=== PATIENT | male | born 1995 | race Caucasian/White ===

== ENCOUNTER 2025-04-01 10:18 | Outpatient (AMB) | payer MEDICARE, SELFPAY ==
--- NOTE | 2025-04-01 10:20 | A.OFFPC_ITS ---
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 Methadone maintenance therapy: - The patient is currently on methadone maintenance therapy and resides in a supportive housing environment. - He requires assistance with methadone management to facilitate take-home dosing. History of intravenous opioid use: - The patient has a history of intraveno us opioid use, primarily heroin, with the last use in August 2021. - He has experienced multiple overdoses but has been abstinent from heroin since the last incident. Schizoaffective disorder: - The patient is diagnosed with schizoaf fective disorder and is managed with haloperidol. Bipolar disorder: - The patient has bipolar disorder, jillian shay with divalproex and supported by regular psychiatric care. Chronic constipation: - The patient experiences chronic consti pation, likely secondary to methadone use, and reports bowel movements every four days. Tobacco use disorder: - The patient smokes approximately 10 ci garettes daily and has a history of smoking for about 10 years. Review of Systems - Gastrointestinal: Reports chronic cons tipation, bowel movements every four days. Denies abdominal pain. - Neurological: Denies headaches, dizzin ess, or balance issues. - Respiratory: Denies dyspnea, cough, or wheezing. 10-point ROS reviewed and negative excep t as noted in HPI Past Medical History - Methadone maintenance therapy for opio id use disorder - History of intravenous opioid use, las t use in August 2021 - Schizoaffective disorder, managed with haloperidol - Bipolar disorder, treated with divalpr oex - Chronic constipation, likely secondary to methadone use - Tobacco use disorder, smoking approxim ately 10 cigarettes daily Health Maintenance - Blood work ordered: Complete blood cou nt, comprehensive metabolic panel, lipid panel, thyroid function tests, vitamin B12, folate, vitamin D, hepatitis B and C, HIV screening - Referral to community nurse for methad one management support Physical Exam General: Well-appearing, in no acute distress. Vital signs: Within normal limits. HEENT: Normocephalic, atraumatic. PERRLA, EOMI. Conjunctiva clear, sclera anicteric. Oropharynx clear, mucous membranes moist. TMs intact bilaterally. Neck: Supple, no lymphadenopathy, no thyromegaly, no JVD or carotid bruits. Cardiovascular: RRR, normal S1/S2, no murmurs, rubs, or gallops. Peripheral pulses 2+ and symmetric. No edema. Respiratory: Lungs clear to auscultation bilaterally, no wheezes, rales, or rhonchi. Normal effort. Abdomen: Soft, non-tender, non-distended. Normoactive bowel sounds. No hepatosplenomegaly, no masses. MSK: Full range of motion, no joint swelling or deformity. Normal gait. Skin: Warm, dry, intact. No rashes, lesions, or pallor. Neuro: Alert and oriented x3. Cranial nerves II-XII intact. Strength 5/5 throughout. Sensation intact. Reflexes 2+ symmetric. Normal coordination and gait. Psych: Appropriate mood and affect. Normal judgment and insight. Patient reports history of schizoaffective disorder and bipolar disorder, managed with Divalproex, Haloperidol, and Hydroxyzine. Reports seeing a psychiatrist and therapist regularly. Plan 1. Methadone Maintenance Therapy - Continue methadone maintenance therapy . Arrange for community nurse to assist with take-home dosing management. 2. History Of Intravenous Opioid Use - Maintain abstinence from opioids. Cont inue monitoring and support through methadone program. 3. Schizoaffective Disorder - Continue current psychiatric managemen t with haloperidol. Regular follow-up with psychiatrist. 4. Bipolar Disorder - Continue treatment with divalproex. Ma intain regular psychiatric follow-up. 5. Chronic Constipation - Prescribe stool softeners and laxative s as needed. Monitor bowel movement frequency and adjust treatment accordingly. 6. Tobacco Use Disorder - Discuss smoking cessation strategies. Consider nicotine replacement therapy if patient is interested. Discussion Notes During the visit, we discussed the patient's ongoing methadone maintenance therapy and the need for community nursing support to facilitate take-home dosing. We reviewed the patient's history of intravenous opioid use and emphasized the importance of maintaining abstinence. The patient is currently managed for schizoaffective disorder and bipolar disorder with haloperidol and divalproex, respectively, and continues to receive psychiatric care. We addressed the patient's chronic constipation, likely secondary to methadone use, and prescribed stool softeners and laxatives as needed. Smoking cessation strategies were discussed, and the patient was encouraged to consider nicotine replacement therapy. Follow-up was arranged for two weeks to review lab results and assess the effectiveness of the constipation management plan. Patient was informed and verbally consented to the use of an ambient scribefor clinic note documentation during this visit. Patient Instructions - Continue taking methadone as prescribe d and await contact from the community nurse for take-home dosing setup. - Maintain abstinence from opioids and a ttend all scheduled appointments with your psychiatrist. - Take prescribed stool softeners and la xatives as needed to manage constipation. - Consider smoking cessation options and discuss with your healthcare provider if interested. - Return for follow-up in two weeks to d iscuss lab results and treatment progress. Total time spent caring for the patient today was 30 minutes. This includes time spent before the visit reviewing the chart, time spent documenting, and time spent reviewing laboratory results, diagnostic imaging, medications, performing a medically necessary evaluation, counseling on diagnoses, care coordination, ordering appropriate tests, ordering appropriate medications, [facility] Medical History (Updated 04/01/25 @ 10:47 by Carloz Jay MD) Chronic constipation Methadone use Family History (Updated 04/01/25 @ 10:22 by Genna Dove MA) Father No problems noted. Mother No problems noted. Social History (Updated 04/01/25 @ 10:31 by Genna Dove MA) Housing: Other (program) Alcohol intake: current Alcohol intake frequency: does not drink Patient Tobacco Use Status: Current someday Tobacco user Cigarettes Per Day: 10 service: No Current occupational status: unemployed Cognitive needs: No Hearing needs: No Vision needs: No Questionnaire PHQ-9 Over the last 2 weeks, how often have you been bothered by any of the following problems? 1. Little interest or pleasure in doing things: not at all 2. Feeling down, depressed, or hopeless: more than half the days 3. Trouble falling or staying asleep, or sleeping too much: not at all 4. Feeling tired or having little energy: not at all 5. Poor appetite or overeating: not at all 6. Feeling bad about yourself - or that you are a failure or have let yourself or your family down: not at all 7. Trouble concentrating on things, such as reading the newspaper or watching television: not at all 8. Moving or speaking so slowly that other people could have noticed. Or the opposite - being so fidgety or restless that you have been moving around a lot more than usual: not at all 9. Thoughts that you would be better off or of hurting yourself in some way: not at all Total score: 2 Source: Developed by Drs. Jason Leija, Brandy Chowdary, Taco Duque and colleagues, with an educational noam from [employer] Thrive Questionnaire Date Thrive assessed: 03/18/25 I am a: Patient What is your living situation today?: I have a steady place to live Within the past 12 months, did the food you bought not last and you didn't have the money to get more?: Sometimes True Within the past 12 months, did you worry whether your food would run out before you got money to buy more?: Sometimes True Do you have trouble paying for medicines?: No Do you have trouble getting transportation to medical appointments?: No Do you have trouble paying your heating and electricity bill?: No Do you have trouble taking care of your child, family member or friend?: No Do you have trouble with day-to-day activities such as bathing, preparing meals, shopping, managing finances, etc.?: No Are you currently unemployed and looking for a job?: Yes Are you interested in more education?: Yes Please select the resources that you would like help with: None Currently or been in a relationship where the following occur: I choose not to answer THRIVE Score: 2 Physical exam (Primary Care) Vital Signs: Last Vital Signs Temp 97.4 F 04/01/25 10:24 Pulse 93 04/01/25 10:24 Resp 16 04/01/25 10:24 BP 127/77 04/01/25 10:24 Pulse Ox 97 04/01/25 10:24 Oxygen Delivery Method Room Air 04/01/25 10:24 BMI result Body Mass Index 21.0 Tobacco/Smoking Status: Tobacco use Status Tobacco use date assessed 04/01/25 04/01/25 10:34 Patient Tobacco Use Status Current someday Tobacco 04/01/25 10:34 PHQ-9: PHQ-9 Score PHQ-9: Total score 2 04/01/25 10:34 Thrive Assessment: Date of Thrive Assessment Date Thrive assessed 03/18/25 04/01/25 10:34 Currently or been in a relationship where the following occur: I choose not to answer Coding Level of Care Code New Pt Level 4 (63748) Diagnoses Methadone use F11.90 Chronic constipation K59.09 History of intravenous drug use Z87.898 Schizoaffective disorder F25.9 Bipolar disorder F31.9 Nicotine use Z72.0 Assessment & Plan Assessment & Plan (1) Methadone use: Code(s): F11.90 - Opioid use, unspecified, uncomplicated Category: Medical (2) Chronic constipation: Code(s): K59.09 - Other constipation Category: Medical (3) History of intravenous drug use: Code(s): Z87.898 - Personal history of other specified conditions (4) Schizoaffective disorder: Code(s): F25.9 - Schizoaffective disorder, unspecified (5) Bipolar disorder: Code(s): F31.9 - Bipolar disorder, unspecified (6) Nicotine use: Code(s): Z72.0 - Tobacco use Plan Orders: Orders Hepatitis B Surface Antigen Today Z13.9 - Encounter for screening, unspecified Lipid Panel Today Z13.9 - Encounter for screening, unspecified Magnesium Today Z13.9 - Encounter for screening, unspecified UA CC w/rflx Micro + Cult Today Z13.9 - Encounter for screening, unspecified Vitamin B12 and Folate Today Z13.9 - Encounter for screening, unspecified Complete Blood Count Auto Diff Today Z13.9 - Encounter for screening, unspecified Comprehensive Met. Panel Today Z13.9 - Encounter for screening, unspecified Chlamydia Species Ab Panel Today Z13.9 - Encounter for screening, unspecified Hemoglobin A1c Today Z13.9 - Encounter for screening, unspecified Hepatitis B Surface Antibody Today Z13.9 - Encounter for screening, unspecified Hepatitis C Antibody Today Z13.9 - Encounter for screening, unspecified HIV Ab/Ag Today Z13.9 - Encounter for screening, unspecified TSH reflex Free T4 Today Z13. - Encounter for screening, unspecified Vitamin D 1,25 dihydroxy Today Z13.9 - Encounter for screening, unspecified Referrals Nurse Navigator Referral F11.90 - Opioid use, unspecified, uncomplicated Medications: New polyethylene glycol 3350 (Miralax) 17 grams PO DAILY 510 grams 0RF K59.09 - Other constipation bisacodyl 10 mg (2 x 5 mg) PO BEDTIME 30 tabs 0RF 2 days K59.09 - Other constipation
[2025-04-01 10:24] VITALS: BP 127/77; PULSE 93; RESP 16; TEMP 36.3; O2SAT 97; BMI 21.0
== END 2025-04-01 10:54 | disposition home or self-care (01) ==
PROVIDERS: PCP Student in an Organized Health Care Education/Training Program; Visit Provider Student in an Organized Health Care Education/Training Program
DX: F11.90 Opioid use, unspecified, uncomplicated (principal); K59.09 Other constipation; Z87.898 Personal history of other specified conditions; F25.9 Schizoaffective disorder, unspecified; F31.9 Bipolar disorder, unspecified; Z72.0 Tobacco use

== ENCOUNTER 2025-04-01 10:18 | Outpatient (REF) | payer MEDICARE, SELFPAY ==
[2025-04-01 13:41] LABS: MANUAL DIFF FLAG NO
[2025-04-01 14:15] LABS: Hematocrit 36.3 % (42.0-52.0); Hemoglobin 12.4 g/dl (14.0-18.0); Imm Gran Abs Auto 0.01 X10*3/uL (0.00-0.03); Imm Gran Pct Auto 0.2 % (0.0-0.4); Lymphocytes Absolute Auto 1.8 X10*3/uL (1.2-4.9); Mean Corpuscular HGB Conc 34.2 g/dl (31.0-36.0); Mean Corpuscular Hemoglobin 29.2 pg (27.0-33.0); Mean Corpuscular Volume 85.6 fL (80.0-98.0); NRBC Abs Auto 0.000 X10*3/uL (0.0-0.012); NRBC Pct Auto 0.0 /100WBC (0.0-0.2); Platelet Count 325 X10*3/uL (160-400); Red Blood Count 4.24 X10*6/uL (4.60-5.80); White Blood Count 4.4 X10*3/uL (4.8-10.8)
[2025-04-01 18:54] LABS: Folate 8.7 ng/mL (> or = 4.0); Vitamin B12 478 pg/mL (200-900)
[2025-04-01 18:55] LABS: Alanine Aminotransferase 12 U/L (0-40); Albumin Level 5.2 g/dL (3.5-5.0); Alkaline Phosphatase 49 U/L (39-117); Anion Gap 12 (12-20); Aspartate Amino Transferase 24 U/L (5-37); Blood Urea Nitrogen 10 mg/dL (9-16); Calcium 9.6 mg/dL (8.4-10.2); Carbon Dioxide 27 mmol/L (22-29); Chloride 104 mmol/L (96-108); Cholesterol 161 mg/dL (<200); Estimated Glomerular Filt Rate > 60; HDL Cholesterol 44 mg/dL (>40); Magnesium 2.0 mg/dL (1.6-2.6); Potassium 4.2 mmol/L (3.3-5.1); Sodium 139 mmol/L (135-145); Total Protein 7.6 g/dL (6.5-8.0); Triglycerides 88 mg/dL (<150)
[2025-04-02 09:07] LABS: HBS Num1 2.41 mIU/mL (0-7.99); HBsAGNum1 0.52 S/CO (0.00-0.99); HIV Num 1 0.06 S/CO (0.00-0.99); Hepatitis B Surface Antigen Negative (Negative); ~HepC Num1 8.06 S/CO (0.00-0.79); ~Hepatitis B Surface Antibody NONREACTIVE (Nonreactive); ~Hepatitis C Antibody Reactive (Nonreactive)
[2025-04-05 19:33] LABS: Chlamydia Trachomatis IgA <1:16 titer (<1:16)
[2025-04-08 15:23] LABS: VITAMIN D (1,25 OH) D3 20 pg/mL; Vit D (1,25-Dihydroxy) Total 20 pg/mL (18-72); Vitamin D (1,25 OH) D2 <8 pg/mL
== END 2025-04-01 10:19 | disposition home or self-care (01) ==
LOC: HO.HKASLDS 10:18
PROVIDERS: PCP Student in an Organized Health Care Education/Training Program; Visit Provider Student in an Organized Health Care Education/Training Program
DX: Z13.9 Encounter for screening, unspecified (principal); F11.20 Opioid dependence, uncomplicated; K59.09 Other constipation; F25.9 Schizoaffective disorder, unspecified; F31.9 Bipolar disorder, unspecified; F17.210 Nicotine dependence, cigarettes, uncomplicated; Z87.898 Personal history of other specified conditions
CPT/HCPCS: 36415; 80053; 80061; 82607; 82652; 82746; 83036; 83735; 84443; 85025; 86631; 86632; 86706; 86803; 87340; 87389; 99202